=== PATIENT | female | born 1960 | race Caucasian/White ===

== ENCOUNTER 2021-11-02 10:29 | Outpatient (CLI) | payer OTHER ==
[2021-11-02] MEDS ORDERED: Iopamidol 300 61% 100 ML VIAL FS ONE (12:46)
== END 2021-11-02 10:30 | disposition home or self-care (01) ==
LOC: CSHCT 10:29
PROVIDERS: ATTEND Physician Assistant Medical
DX: R10.13 Epigastric pain (principal); R10.12 Left upper quadrant pain; K76.89 Other specified diseases of liver; N28.1 Cyst of kidney, acquired; K57.30 Diverticulosis of large intestine without perforation or abscess without bleeding
CPT/HCPCS: 74177; 82565; Q9967

== ENCOUNTER 2022-08-12 09:03 | Outpatient (CLI) | payer BC, OTHER | END 2022-08-12 09:04 | disposition home or self-care (01) | LOC: CSHULT 09:03 | PROVIDERS: ATTEND Internal Medicine | DX: M79.622 Pain in left upper arm (principal) ==